=== PATIENT | female | born 2000 | race Caucasian/White ===

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

== ENCOUNTER 2018-02-05 17:51 | Emergency (ER) | payer OTHER, MEDICAID ==
[~2018-02-05] VITALS: Ht 165.1 cm; Wt 78.0 kg
[~2018-02-05 17:51] MED LIST changes: +GUAIFEN-CODEINE10 ML PO
[2018-02-05 18:02] VITALS: BP 130/48
[2018-02-05] MEDS ORDERED: NAPROXEN375 MG PO (18:03)
[2018-02-05] MEDS ORDERED: ZANAFLEX4 MG PO (18:30)
[2018-02-05] MEDS ORDERED: MEDROLDOSEPACK PO (18:30)
[2018-02-05] MEDS ORDERED: IBUPROFEN 800800 M1 PO (18:30)
== END 2018-02-05 18:37 | disposition home or self-care (01) ==
LOC: M.ERS 17:51
DX: G89.29 Other chronic pain (principal); M54.5 Low back pain; F32.9 Major depressive disorder, single episode, unspecified

== ENCOUNTER 2018-02-21 22:52 | Emergency (ER) | payer OTHER, MEDICAID ==
[~2018-02-21] VITALS: Ht 165.1 cm; Wt 81.7 kg
[~2018-02-21 22:52] MED LIST changes: +NAPROXEN375 MG PO; +ZANAFLEX4 MG PO
[2018-02-21] MEDS ORDERED: PROMETHAZINE V473 ML PO (23:37)
[2018-02-21] MEDS ORDERED: MEDROLDOSEPACK PO (23:37)
[2018-02-21] MEDS ORDERED: PROAIR HFA8.5 GM INH (23:37)
[2018-02-21] MEDS ORDERED: ZPAK PO (23:37)
[2018-02-21 23:59] VITALS: BP 142/82
== END 2018-02-22 00:02 | disposition home or self-care (01) ==
LOC: M.ERS 22:52
DX: J20.9 Acute bronchitis, unspecified (principal); G89.29 Other chronic pain; M54.9 Dorsalgia, unspecified; F41.9 Anxiety disorder, unspecified; F32.9 Major depressive disorder, single episode, unspecified

== ENCOUNTER 2019-06-27 14:02 | Emergency (ER) | payer OTHER, MEDICAID ==
[~2019-06-27] VITALS: Ht 165.1 cm; Wt 72.6 kg
[~2019-06-27 14:02] MED LIST changes: +PROMETHAZINE V473 ML PO
[2019-06-27 14:12] VITALS: BP 152/114
[2019-06-27] MEDS ORDERED: NABUMETONE 750750 M1 PO ×2 (14:42→14:43)
[2019-06-27] MEDS ORDERED: PENICILLIN V P500 MG PO ×2 (14:42→14:43)
[2019-06-27] MEDS ORDERED: NORCO 5-325 TA1 EAC1 PO (14:42)
== END 2019-06-27 15:01 | disposition home or self-care (01) ==
LOC: M.ERS 14:02
DX: S02.5XXA Fracture of tooth (traumatic), initial encounter for closed fracture (principal); F41.9 Anxiety disorder, unspecified; F32.9 Major depressive disorder, single episode, unspecified; G89.29 Other chronic pain; M54.9 Dorsalgia, unspecified; X58.XXXA Exposure to other specified factors, initial encounter; Y93.89 Activity, other specified; Y92.89 Other specified places as the place of occurrence of the external cause; Y99.8 Other external cause status

== ENCOUNTER 2019-08-09 01:08 | Emergency (ER) | payer OTHER, MEDICAID ==
[~2019-08-09] VITALS: Ht 165.1 cm; Wt 68.0 kg
[~2019-08-09 01:08] MED LIST changes: +NABUMETONE 750750 M1 PO; +NORCO 5-325 TA1 EAC1 PO
[2019-08-09 01:13] VITALS: BP 122/91
[2019-08-09] MEDS ORDERED: PENICILLIN VK500 MG PO (01:24)
[2019-08-09] MEDS ORDERED: HYDROCODON-ACE1 EAC8 PO (01:24)
[2019-08-09] MEDS ORDERED: XULANE PATCH1 EACH TOP (01:26)
== END 2019-08-09 01:32 | disposition home or self-care (01) ==
LOC: M.ERS 01:08
DX: K02.9 Dental caries, unspecified (principal); K04.7 Periapical abscess without sinus; F41.9 Anxiety disorder, unspecified; F32.9 Major depressive disorder, single episode, unspecified; G89.29 Other chronic pain

== ENCOUNTER 2020-06-26 13:53 | Emergency (ER) | payer OTHER, MEDICAID ==
[~2020-06-26] VITALS: Ht 165.1 cm; Wt 70.3 kg
[~2020-06-26 13:53] MED LIST changes: +HYDROCODON-ACE1 EAC8 PO; +PENICILLIN VK500 MG PO; +XULANE PATCH1 EACH TOP
[2020-06-26] MEDS ORDERED: IBUPROFEN 800800 M1 PO (14:04)
[2020-06-26] MEDS ORDERED: IRON325 PO (14:05)
[2020-06-26] MEDS ORDERED: ENBRACE HR SOF1 EACH PO (14:05)
[2020-06-26] MEDS ORDERED: NORCO 5-325 TA1 EAC2 PO (14:44)
[2020-06-26] MEDS ORDERED: MUPIROCIN15 GM TOP (14:44)
[2020-06-26] MEDS ORDERED: KEFLEX500 M1 PO (14:44)
[2020-06-26 15:03] VITALS: BP 141/94
== END 2020-06-26 15:03 | disposition home or self-care (01) ==
LOC: M.ERS 13:53
DX: O90.0 Disruption of cesarean delivery wound (principal); Z76.0 Encounter for issue of repeat prescription; Z98.890 Other specified postprocedural states

== ENCOUNTER 2020-07-19 12:28 | Emergency (ER) | payer OTHER, MEDICAID ==
[~2020-07-19] VITALS: Ht 165.1 cm; Wt 74.8 kg
[~2020-07-19 12:28] MED LIST changes: +ENBRACE HR SOF1 EACH PO; +IRON325 PO; +KEFLEX500 M1 PO; +MUPIROCIN15 GM TOP; +NORCO 5-325 TA1 EAC2 PO
[2020-07-19 12:40] VITALS: BP 155/114
[2020-07-19] MEDS ORDERED: CELEXA10 MG PO (12:43)
[2020-07-19] MEDS ORDERED: NEURONTIN 300M300 M2 PO (12:43)
[2020-07-19] MEDS ORDERED: VISTARIL 25 MG25 M1 PO (13:14)
== END 2020-07-19 13:29 | disposition home or self-care (01) ==
LOC: M.ERS 12:28
DX: F41.9 Anxiety disorder, unspecified (principal); T42.6X5A Adverse effect of other antiepileptic and sedative-hypnotic drugs, initial encounter; Z79.899 Other long term (current) drug therapy; Y92.89 Other specified places as the place of occurrence of the external cause

== ENCOUNTER 2020-08-01 10:27 | Emergency (ER) | payer OTHER, MEDICAID ==
[~2020-08-01] VITALS: Ht 165.1 cm; Wt 72.6 kg
[~2020-08-01 10:27] MED LIST changes: +CELEXA10 MG PO; +NEURONTIN 300M300 M2 PO; +VISTARIL 25 MG25 M1 PO
[2020-08-01] MEDS ORDERED: TRIAMCINOLONE A15 G1 TP (11:17)
[2020-08-01] MEDS ORDERED: PREDNISONE 20 M20 M1 PO (11:17)
[2020-08-01 11:35] VITALS: BP 140/59
== END 2020-08-01 11:36 | disposition home or self-care (01) ==
LOC: M.ERS 10:27
DX: L25.9 Unspecified contact dermatitis, unspecified cause (principal); Z79.899 Other long term (current) drug therapy

== ENCOUNTER 2020-12-17 19:52 | Emergency (ER) | payer OTHER, MEDICAID ==
[~2020-12-17] VITALS: Ht 165.1 cm; Wt 95.3 kg
[~2020-12-17 19:52] MED LIST changes: +PREDNISONE 20 M20 M1 PO; +TRIAMCINOLONE A15 G1 TP
[2020-12-17 20:34] LABS: ABSOLUTE BASOPHILS 0.1 thou/uL (0.0-0.2); ABSOLUTE LYMPHOCYTES 1.5 thou/uL (0.8-5.3); ABSOLUTE MONOCYTES 0.6 thou/uL (0.0-1.2); ABSOLUTE NEUTROPHILS 7.8 thou/uL (1.6-8.1); BASOPHILS 0.5 %; EOSINOPHILS 0.4 %; HEMOGLOBIN 13.7 gm/dL (12.0-15.0); LYMPHOCYTES 14.9 %; MCH 30.3 pg (26.0-34.0); MCHC 33.4 g/dL (28.0-37.0); MCV 90.6 fL (80.0-100.0); MONOCYTES 5.8 %; MPV 7.7 fl. (7.2-11.1); NUCLEATED RBCS 0 /100WBC; PLATELET COUNT* 424 thou/uL (150-400); POLYS 78.4 %; RBC 4.52 mil/uL (4.20-5.00); RDW-CV 12.4 % (10.5-14.5); WBC 9.9 thou/uL (4.0-11.0)
[2020-12-17 20:42] LABS: CALCIUM 8.5 mg/dL (8.5-10.1); CREATININE 0.7 mg/dL (0.6-1.3); POTASSIUM 3.6 mmol/L (3.5-5.1)
[2020-12-17 20:47] LABS: ALBUMIN 3.5 g/dL (3.4-5.0); TOTAL BILIRUBIN 0.3 mg/dL (<0.1-1.0); TOTAL PROTEIN 8.1 g/dL (6.4-8.2)
[2020-12-17] MEDS ORDERED: ZOFRAN ODT4 MG PO (21:03)
[2020-12-17 21:07] VITALS: BP 120/60
== END 2020-12-17 21:08 | disposition home or self-care (01) ==
LOC: M.ERS 19:52
PROVIDERS: Nurse Practitioner Family
DX: R11.2 Nausea with vomiting, unspecified (principal); R19.7 Diarrhea, unspecified; Z98.890 Other specified postprocedural states

== ENCOUNTER 2021-01-02 12:43 | Emergency (ER) | payer OTHER, MEDICAID ==
[~2021-01-02] VITALS: Ht 165.1 cm; Wt 95.3 kg
[~2021-01-02 12:43] MED LIST changes: +ZOFRAN ODT4 MG PO
[2021-01-02 12:50] VITALS: BP 152/71
[2021-01-02] MEDS ORDERED: PRENATAL PO (12:58)
[2021-01-02] MEDS ORDERED: IRON325 M1 PO (12:58)
[2021-01-02] MEDS ORDERED: TESSALON PERLE100 MG PO (14:12)
[2021-01-02] MEDS ORDERED: MEDROLDOSEPACK PO (14:12)
[2021-01-02] MEDS ORDERED: ZPAK PO (14:12)
== END 2021-01-02 14:25 | disposition home or self-care (01) ==
LOC: M.ERS 12:43
DX: J98.8 Other specified respiratory disorders (principal); Z20.822 Contact with and (suspected) exposure to COVID-19; Z98.890 Other specified postprocedural states; G89.29 Other chronic pain

== ENCOUNTER 2021-06-17 10:32 | Emergency (ER) | payer OTHER, MEDICAID ==
[~2021-06-17] VITALS: Ht 162.6 cm; Wt 74.4 kg
[~2021-06-17 10:32] MED LIST changes: +IRON325 M1 PO; +PRENATAL PO
[2021-06-17 10:54] VITALS: BP 142/92
== END 2021-06-17 10:54 | disposition home or self-care (01) ==
LOC: M.ERS 10:32
DX: M25.572 Pain in left ankle and joints of left foot (principal); M79.89 Other specified soft tissue disorders; F32.9 Major depressive disorder, single episode, unspecified; F41.9 Anxiety disorder, unspecified; Z98.890 Other specified postprocedural states